=== PATIENT | female | born 1995 | race Caucasian/White ===

== ENCOUNTER → 2020-07-02 | Outpatient (CLI) | payer OTHER ==
--- NOTE | 2020-08-14 09:50 | REP ---
OBSTETRIC ULTRASOUND FOR ANATOMY DATE: 07/02/2020. NOTE: Delay in reporting results from hospital computer system malfunction as a result of a malware attack. FINDINGS: There is a single intrauterine gestation. position is variable. The placenta is posterior, grade 1. There is no previa or abruptio. On one of the images, the inferior tip of the placenta extends into the lower uterine segment and is 2.2 cm above the internal cervical os. The heart rate is 167 beats per minute. Subjectively, the amniotic fluid volume is normal. Cervix measures 3.4 cm in length. The technologist describes a 2.5 cm fibroid in the anterior-inferior myometrium; however, I do not see any images of this fibroid in the images provided with the study. The composite gestational age by the ultrasound today is 21 weeks, 4 days. EDC is 11/08/2020. The estimated weight is 453 grams. This is the 28th percentile. The following anatomic structures are identified and are unremarkable: Cisterna magna, cavum septum pellucidum, thalami, spine, stomach, bladder, three-vessel cord, cord insertion, upper and lower extremities, face, and upper lip. The four-chamber view of the heart and the cardiac right ventricular outflow tracts are not optimally demonstrated. A followup study dedicated to these structures might be considered. Additionally, the renal pelves measured 5 mm AP diameter and are upper normal to mildly dilated. Attention to this finding on followup studies is recommended. In addition, attention to the location of the placental inferior margin is recommended on follow up studies. MTDD
== END ==
LOC: M WHC 16:38
PROVIDERS: ATTEND Advanced Practice Midwife
DX: Z34.82 Encounter for supervision of other normal pregnancy, second trimester (principal); Z3A.21 21 weeks gestation of pregnancy

== ENCOUNTER → 2020-07-21 | Outpatient (CLI) | payer OTHER ==
[2020-07-21 19:30] LABS: HEMATOCRIT 35.6 % (36.0-47.0); HEMOGLOBIN 11.8 g/dl (12.0-15.5); MEAN CORPUSCULAR HEMOGLOBIN 30.1 pg (27.0-33.0); MEAN CORPUSCULAR HGB CONC 33.1 g/dl (32.0-36.5); MEAN CORPUSCULAR VOLUME 90.8 fl (80.0-96.0); PLATELET COUNT, AUTOMATED 264 10^3/uL (150-450); RED BLOOD COUNT 3.92 10^6/uL (4.00-5.40); WHITE BLOOD COUNT 9.5 10^3/uL (4.0-10.0)
== END ==
LOC: M PLALAB 14:50
PROVIDERS: ATTEND Advanced Practice Midwife
DX: Z34.02 Encounter for supervision of normal first pregnancy, second trimester (principal); Z3A.00 Weeks of gestation of pregnancy not specified

== ENCOUNTER → 2020-08-06 | Outpatient (CLI) | payer OTHER ==
--- NOTE | 2020-08-21 08:38 | REP ---
LIMITED OBSTETRICAL ULTRASOUND TECHNIQUE: Transabdominal obstetric ultrasound with color Doppler evaluation. COMPARISON: 07/02/2020 FINDINGS: Ultrasound examination demonstrates a single live intrauterine in breech presentation. motion was identified by the technologist. Placenta noted posteriorly and grade 0 without evidence for placenta previa or abruption. Amniotic fluid volume is normal. Cervix measures 3.3 cm in length and appears closed. Gestational age by last menstrual period (LMP) 27 weeks 1 day with estimated date of delivery 11/04/2020. Gestational age by current measurements 26 weeks 5 days with estimated date of delivery 11/07/2020. heart rate 152 beats per minute. Amniotic fluid index (ISAC) 12.3 cm. Estimated weight 985 grams (27th percentile). Limited anatomical assessment demonstrates normal four chamber heart and cardiac ventricular outflow tracts. IMPRESSION: Single live intrauterine in breech presentation demonstrating appropriate estimated weight. In conjunction with prior examination, anatomical assessment is complete and normal. No gross abnormalities are identified. MTDD
== END ==
LOC: M WHC 12:52
PROVIDERS: ATTEND Advanced Practice Midwife
DX: O32.1XX0 Maternal care for breech presentation, not applicable or unspecified (principal); Z36.89 Encounter for other specified antenatal screening; Z3A.26 26 weeks gestation of pregnancy

== ENCOUNTER → 2020-08-27 | Outpatient (CLI) | payer OTHER ==
--- NOTE | 2020-09-01 15:09 | REP ---
LEFT AXILLARY ULTRASOUND HISTORY: Lump left axillary tail. TECHNIQUE: Real-time sonographic evaluation of the left axilla is performed at the site of the reported palpable abnormality. Scanning of the right axilla was performed for comparison. FINDINGS: There is prominent ill-defined soft tissue seen in the left axillary region at the site of the palpable lump. There is no discrete cystic or solid mass. The soft tissue is thicker than right. AP thickness on the left is about 1.3 cm and right 0.8 cm. IMPRESSION: Asymmetric soft tissue is ill-defined in the left axilla at the site of the reported palpable lump. This may represent some degree of fibroglandular proliferation in this patient who is reportedly . There is no discrete cystic or solid mass. Clinical correlation and follow-up recommended. MARILYN
== END ==
LOC: M WHC 10:59
PROVIDERS: ATTEND Advanced Practice Midwife
DX: N63.32 Unspecified lump in axillary tail of the left breast (principal)

== ENCOUNTER → 2020-09-09 | Outpatient (REF) | payer OTHER ==
[2020-09-09 15:48] LABS: HIV 1&2 SCREEN CENTAUR NEGATIVE (NEGATIVE)
== END ==
LOC: M PLALAB 09:32
PROVIDERS: ATTEND Advanced Practice Midwife
DX: Z34.03 Encounter for supervision of normal first pregnancy, third trimester (principal)
CPT/HCPCS: 36415; 87340; 87389; 87490; 87590; G0463

== ENCOUNTER → 2020-10-07 | Outpatient (REF) | payer OTHER | LOC: M SFHCWAGY 16:49 | PROVIDERS: ATTEND Advanced Practice Midwife | DX: Z34.03 Encounter for supervision of normal first pregnancy, third trimester (principal); Z3A.00 Weeks of gestation of pregnancy not specified | CPT/HCPCS: 87081; 87186; G0463 ==

== ENCOUNTER 2020-11-07 04:08 | Inpatient (IN) | payer OTHER ==
[2020-11-07] VITALS (18 sets, daily range): BP systolic 103–132; BP diastolic 58–77
[~2020-11-07] VITALS: Ht 165.1 cm; Wt 86.4 kg
[2020-11-07] MEDS ORDERED: PRENTAB9 PO (04:48)
[2020-11-07] MEDS ORDERED: LR 1,000 ML IV SCH ×2 (06:35→11:19)
[2020-11-07] MEDS ORDERED: PENICILLIN G POTASSIUM IV 5 MU in D5W MINI-BAG PLUS 100 ML IV STA (06:35)
[2020-11-07] MEDS ORDERED: LACTATED RINGER'S 1000 ML IV STA (06:35)
[2020-11-07 07:21] LABS: HEMATOCRIT 37.2 % (36.0-47.0); HEMOGLOBIN 11.9 g/dl (12.0-15.5); MEAN CORPUSCULAR VOLUME 84.4 fl (80.0-96.0); PLATELET COUNT, AUTOMATED 207 10^3/uL (150-450); RED BLOOD COUNT 4.41 10^6/uL (4.00-5.40); WHITE BLOOD COUNT 10.7 10^3/uL (4.0-10.0)
--- NOTE | 2020-11-07 08:02 | HPEPDOC ---
Obstetrical History & Physical General Date of Admission Nov 07, 2020 at 06:42 History of Present Illness Jesus is a 24yo with SIUP at 40w3d by lmp who presents for regular, painful ctx that have increased in frequency and intensity over the prior couple of hours. She stated they were 3min apart and breathing through them. Good movement. Thinks she "lost her mucous plug". No LOF. Some scant spotting. No f/c/n/v/CP/SOB. 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 history Past Medical History Medical History benign Surgical History: [place] teeth Family History Significant Family History: No pertinent family hx Social History Marital Status: Family situation: Spouse/partner home Psychosocial History: No pertinent psych hx * Smoker: non-smoker Alcohol: Denies Drugs: denies Imunizations Tdap status: declined Allergies Coded Allergies: shellfish derived (Verified Allergy, Mild, RASH, 11/07/20) Sulfa (Sulfonamide Antibiotics) (Verified Allergy, Unknown, 11/07/20) Medications Scheduled No.137/Iron/Folic Acd ( Vitamin Tablet) 1 Each Tablet, 1 TAB PO DAILY Physical Examination Physical Examination GENERAL: Alert and oriented times three. ABDOMEN: Gravid and non-tender to touch. FETUS: Is vertex (VTX) by sterile vaginal examination (SVE) EXTREMITIES: No edema BLE Vital Signs/I&O Vital Signs Date Time Temp Pulse Resp B/P (MAP) Pulse Ox O2 Delivery O2 Flow Rate FiO2 11/07/20 04:29 97.9 98 18 132/75 (94) Laboratory Data [facility] Laboratory Tests 2 11/07/20 06:46: Serology Scanned Report Hepatitis B Testing 11/07/20 07:00: CBC/BMP Pertinent Laboratoy Data Blood Type: AB+ RBC Antibody Screen: Negative HIV: Negative Hepatitis B: Negative Rapid Plasma Reagin: Nonreactive (VDRL 04/18/20) Rubella: Immune Chlamydia/Gonorrhea: Negative Group B Streptococcus: Positive Glucose Tolerance Test: 92 Anatomy Ultrasound Ultrasound Date: Aug 06, 2020 Placenta Location: Posterior Normal Anatomy: Yes Placenta Previa: No Steroid Therapy Steroid Therapy: No Vaginal Examination Dilation: 6 cm Effacement: 90% Station: -2 Cervical Consistency: Soft Cervical Position: Middle Presentation: Cephalic presentation Assessment Heart Rate (FHR): 130 Variability: Moderate Accelerations: Positive Decelerations: None Tocometer Contractions: Yes Frequency: irregular Assessment/Plan Assessment Jesus is a 24yo with SIUP at 40w3d by lmp in active labor- she was checked by VU Funez and was 3/50/-3 then on re-check by me 2hr later is 6/90/-2. Ctx currently are irregular. Cephalic by SCE. Vitals and exam wnl. Cat I FHRT. Second trimester transfer-in from [place], GBS positive, Covid positive 27 October Plan Admit and orient. Car Refinisher and consent. Diet: clear liquids Group B Streptococcus (GBS) positive: PCN IV per protocol Labs and intravenous (IV) per unit protocol. Lactated Ringers (LR): Bolus 800 mL, then at 125 mL/hr. Anticipate normal spontaneous delivery () Candidate for epidural if desired Ellie Severino MD Nov 07, 2020 08:01
[2020-11-07] MEDS ORDERED: miSOPROStol 50 MCG 1/2 TAB (S0191) PO SCH (09:00)
--- NOTE | 2020-11-07 09:04 | IPNPDOC ---
Text Note Date of Service The patient was seen on 11/07/20. NOTE Inpatient Jesus reports contractions are spacing out and that has been seen on EFM also. Risks, benefits, and alternatives to AROM and Pitocin were discussed. She is opting for position changes and free movement for the next 2hrs and reassess and discuss intervention at that time. She wants as intervention free labor and as possible. She is has the CUB, birthing ball, and partner/cigar head perforator at her disposal for less intervention . Category 1 FHR, 140bpm baseline, UC irregular on toco Regular Diet for breakfast, per her request VS,Fishbone, I+O VS, Fishbone, I+O Laboratory Tests 11/07/20 07:00 Vital Signs Date Time Temp Pulse Resp B/P (MAP) Pulse Ox O2 Delivery O2 Flow Rate FiO2 11/07/20 04:29 97.9 98 18 132/75 (94) Harriett Schulz CNM Nov 07, 2020 09:04
--- NOTE | 2020-11-07 11:26 | IPNPDOC ---
Text Note Date of Service The patient was seen on 11/07/20. NOTE Inpatient Jesus has been changing positions frequently and contractions have not increased over the last few hours. She reports less intense and less frequent contractions. SVE /-1, soft, midposition by INNA Sam. Discussed options for AROM and Pitocin to be started to augment labor. After a discussion with her partner and rn acls, she opted to have Pitocin started at this time. Category 1 FHT, 140bpm baseline, UC irregular by [place] Plan to start Pitocin Anticipate VS,Fishbone, I+O VS, Fishbone, I+O Laboratory Tests 11/07/20 07:00 Vital Signs Date Time Temp Pulse Resp B/P (MAP) Pulse Ox O2 Delivery O2 Flow Rate FiO2 11/07/20 08:49 98.4 75 16 104/60 (75) Harriett Schulz CNM Nov 07, 2020 11:26
[2020-11-07] MEDS ORDERED: OXYTOCIN DRIP 30 UNITS in IV 1 EA IV SCH (11:30)
[2020-11-07] MEDS: PENICILLIN G POTASSIUM IV 2.5 MU in IV 1 EA IV SCH ×2 (11:36→15:13)
--- NOTE | 2020-11-07 15:22 | IPNPDOC ---
Text Note Date of Service The patient was seen on 11/07/20. NOTE Inpatient Jesus is moaning through contractions with partner and mortgage loan underwriter support she has been changing positions frequently and feeling more pressure with contractions. Small amount of bloody show seen on bed pads. Awaiting strong urge to push. Declined SVE at this time. Category 1 FHT, 150bpm baseline. UC 3-4 minutes apart Pitocin at 8mu/min, continue with Pitocin. Anticipate VS,Fishbone, I+O VS, Fishbone, I+O Laboratory Tests 11/07/20 07:00 Vital Signs Date Time Temp Pulse Resp B/P (MAP) Pulse Ox O2 Delivery O2 Flow Rate FiO2 11/07/20 13:40 93 18 111/70 (84) 11/07/20 08:49 98.4 Harriett Schulz CNM Nov 07, 2020 15:22
[2020-11-07 17:40] LABS: CORD GAS ABE V -6.4; CORD GAS HCO3 V 18.6 MEQ/L; CORD GAS O2 SAT V 92.3 %; CORD GAS PCO2 V 35.8 mmHg; CORD GAS PH V 7.333 UNITS; CORD GAS PO2 V 52.5 mmHg; CORD GAS SBC V 19.2 MEQ/L; CORD GAS TCO2 V 19.7 MEQ/L
[2020-11-07] MEDS ORDERED: RHOGAM 300 MCG (1500 IU) INJ (J2790) IM SCH (18:15)
[2020-11-07] MEDS ORDERED: OXYTOCIN INJ 10 UNITS/ML VIAL (J2590) IM ONE (18:15)
[2020-11-07] MEDS ORDERED: MEASLES,MUMPS,RUBELLA VACCINE INJ (MMR-II) (90707) SC SCH (18:15)
[2020-11-07] MEDS ORDERED: ANUSOL HC CREAM 30GM TOP PRN (18:15)
[2020-11-07] MEDS ORDERED: LIDOCAINE 1% MDV 20ML VIAL INFIL ONE (18:15)
[2020-11-07] MEDS ORDERED: DOCUSATE SODIUM 100MG CAPSULE PO PRN (18:15)
[2020-11-07] MEDS ORDERED: BENZOCAINE 20% HEMORRHOIDAL OINTMENT 28GM TUBE TOP PRN (18:15)
[2020-11-07] MEDS ORDERED: METHYLERGONOVINE MALEATE 0.2 MG TAB PO PRN (18:15)
[2020-11-07] MEDS ORDERED: MOM 30ML SUSPENSION UDC PO PRN (18:15)
[2020-11-07] MEDS ORDERED: IBUPROFEN 600MG TAB PO PRN (18:15)
--- NOTE | 2020-11-07 18:17 | DNPDOC ---
[facility] Delivery Note Delivery Note DATE OF DELIVERY: 11/07/20 @ 1725 PREDELIVERY DIAGNOSIS: 40-3/7 weeks' gestation and labor. POST DELIVERY DIAGNOSIS: Delivered. PROCEDURE: Spontaneous vaginal delivery. PROVIDER: LANDON Oliver and INNA Sam ANESTHESIA: Local, 1% Lidocaine. ESTIMATED BLOOD LOSS: 300 mL. FINDINGS: 8 pound 6 ounce, 3790g, Male , Score 7/9, shoulder dystocia alleviated with Brodie and Suprapubic pressure. DELIVERY SUMMARY: Patient is a 24-year-old 1 now para 1-0-0-1 who was admitted to labor and delivery for spontaneous labor. She progressed on her own to 6cm and then labor stalled. Pitocin was started and she began pushing with a strong urge to push at 1627 with anterior lip that resolved with pushing, full dilation was at 1643. SROM was noted at 1604, clear fluid. head was delivered in the KRUNAL position with restitution to ROP. Anterior left shoulder dystocia over 60 seconds relieved with flattening HOB, Brodie, suprapubic pressure, and strong maternal pushing efforts. fully delivered at 1725 and placed on maternal abdomen, cryng and vigorous with stimulation. Venous blood gas collected, pH 7.333, base excess -6.4. Placenta delivered intact with maternal pushing efforts at 1742, House mechanism. Vagina, perineum, cervix examined and a right labial laceration was repaired with 3-0 Vicryl Rapide. Sponges and sharps counted and correct. Kendell are pleased with and planning to name him "Tj" and breastfeed him. Harriett Schulz CNM Nov 07, 2020 18:17
[2020-11-07] MEDS: IBUPROFEN 800 MG TAB PO PRN (18:40)
[2020-11-07] MEDS: ACETAMINOPHEN TAB 650MG DOSE (2X325MG) PO PRN (18:41)
[2020-11-07] MEDS ORDERED: miSOPROStol 200 MCG TAB (S0191) PR ONE (18:45)
[2020-11-07] MEDS: METHYLERGONOVINE MALEATE 0.2 MG TAB PO SCH (19:33)
[2020-11-08] MEDS: METHYLERGONOVINE MALEATE 0.2 MG TAB PO SCH ×3 (00:52→12:56)
[2020-11-08] MEDS: ACETAMINOPHEN TAB 650MG DOSE (2X325MG) PO PRN (01:02)
[2020-11-08 02:00] VITALS: BP 125/69
[2020-11-08 05:42] VITALS: BP 114/59
--- NOTE | 2020-11-08 08:01 | IPNPDOC ---
Text Note Date of Service The patient was seen on 11/08/20. NOTE PP #1 Feels well. Adequate pain management. . Voiding VSS, afebrile, normotensive Breasts soft, nipples intact Fundus firm, NT, down 1 FB Lochia rubra light without odor Perineum intact PP #1 Routine care. Anticipate D/C in am VS,Fishbone, I+O VS, Fishbone, I+O Vital Signs Date Time Temp Pulse Resp B/P (MAP) Pulse Ox O2 Delivery O2 Flow Rate FiO2 11/08/20 05:42 98.7 96 17 114/59 (77) 98 Room Air I&O- Last 24 Hours up to 6 AM 11/08/20 06:00 Intake Total 3198.8 ml Output Total 1750 ml Balance 1448.8 ml Harriett Schulz CNM Nov 08, 2020 08:01
[2020-11-08] MEDS: PRENATAL VITAMINS CHEWABLE TABLET PO SCH (08:02)
[2020-11-08] MEDS: ACETAMINOPHEN 500 MG TAB PO PRN ×3 (08:02→23:24)
[2020-11-08 10:00] VITALS: BP 114/60
[2020-11-08] MEDS: IBUPROFEN 800 MG TAB PO PRN ×2 (12:56→20:57)
[2020-11-08 18:00] VITALS: BP 117/60
[2020-11-08] MEDS ORDERED: METHYLERGONOVINE MALEATE 0.2 MG TAB PO PRN (18:46)
[2020-11-09] MEDS: IBUPROFEN 800 MG TAB PO PRN (05:04)
[2020-11-09 05:20] VITALS: BP 109/56
[2020-11-09] MEDS: PRENATAL VITAMINS CHEWABLE TABLET PO SCH (08:26)
== END 2020-11-09 12:30 | disposition home or self-care (01) | DRG 807 ==
LOC: M LDO 04:08 → M LDI 06:42 → M OBS 20:23
PROVIDERS: ADMIT Obstetrics & Gynecology; ATTEND Advanced Practice Midwife
PROC: 10E0XZZ Delivery of Products of Conception, External Approach (ICD-10-PCS; principal; 2020-11-07)
PROC: 0HQ9XZZ Repair Perineum Skin, External Approach (ICD-10-PCS; 2020-11-07)
DX: O48.0 Post-term pregnancy (principal); Z37.0 Single live birth; Z3A.40 40 weeks gestation of pregnancy; O99.824 Streptococcus B carrier state complicating childbirth; O66.0 Obstructed labor due to shoulder dystocia; O70.0 First degree perineal laceration during delivery

== ENCOUNTER → 2022-08-30 | Outpatient (CLI) | payer OTHER ==
[~2022-08-30] MED LIST: PRENTAB9 PO
[2022-08-30 17:01] LABS: HEMATOCRIT 34.1 % (36.0-47.0); HEMOGLOBIN 11.6 g/dl (12.0-15.5); MEAN CORPUSCULAR HEMOGLOBIN 29.3 pg (27.0-33.0); MEAN CORPUSCULAR VOLUME 86.1 fl (80.0-96.0); PLATELET COUNT, AUTOMATED 256 10^3/uL (150-450); RED BLOOD COUNT 3.96 10^6/uL (4.00-5.40); WHITE BLOOD COUNT 8.4 10^3/uL (4.0-10.0)
[2022-08-30 18:25] LABS: HEPATITIS C VIRUS ABY INDEX < 0.0 INDEX (<0.8); HIV 1&2 SCREEN CENTAUR NEGATIVE (NEGATIVE)
[2022-08-30 18:48] LABS: GC DNA AMPLIFICATION NEGATIVE (NEGATIVE)
== END ==
LOC: M PLALAB 15:09
PROVIDERS: ATTEND Obstetrics & Gynecology
DX: Z34.82 Encounter for supervision of other normal pregnancy, second trimester (principal); Z3A.17 17 weeks gestation of pregnancy
CPT/HCPCS: 36415; 85027; 86762; 86780; 86803; 86850; 86900; 86901; 87086; 87340; 87389; 87810; 87850; G0463

== ENCOUNTER → 2022-09-15 | Outpatient (CLI) | payer OTHER | LOC: M WHC 09:02 | PROVIDERS: ATTEND Obstetrics & Gynecology | DX: Z34.92 Encounter for supervision of normal pregnancy, unspecified, second trimester (principal); Z3A.19 19 weeks gestation of pregnancy ==

== ENCOUNTER → 2022-11-23 | Outpatient (CLI) | payer OTHER | LOC: M WHC 14:30 | PROVIDERS: ATTEND Obstetrics & Gynecology | DX: O32.2XX0 Maternal care for transverse and oblique lie, not applicable or unspecified (principal); Z3A.29 29 weeks gestation of pregnancy ==

== ENCOUNTER → 2022-11-23 | Outpatient (CLI) | payer OTHER ==
[2022-11-23 18:17] LABS: HEMATOCRIT 32.2 % (36.0-47.0); HEMOGLOBIN 10.6 g/dl (12.0-15.5); MEAN CORPUSCULAR HGB CONC 32.9 g/dl (32.0-36.5); PLATELET COUNT, AUTOMATED 230 10^3/uL (150-450); RED BLOOD COUNT 3.66 10^6/uL (4.00-5.40); WHITE BLOOD COUNT 11.1 10^3/uL (4.0-10.0)
[2022-11-23 18:37] LABS: GC DNA AMPLIFICATION NEGATIVE (NEGATIVE)
== END ==
LOC: M PLALAB 14:59
PROVIDERS: ATTEND Obstetrics & Gynecology
DX: Z34.82 Encounter for supervision of other normal pregnancy, second trimester (principal)

== ENCOUNTER → 2023-01-11 | Outpatient (REF) | payer OTHER | LOC: M PLALAB 09:25 | PROVIDERS: ATTEND Advanced Practice Midwife | DX: Z34.83 Encounter for supervision of other normal pregnancy, third trimester (principal) ==

== ENCOUNTER → 2023-02-02 | Outpatient (CLI) | payer OTHER | LOC: M LABSMTC 11:12 | PROVIDERS: ATTEND Anesthesiology | DX: Z01.812 Encounter for preprocedural laboratory examination (principal); Z20.822 Contact with and (suspected) exposure to COVID-19 ==

== ENCOUNTER → 2024-03-28 | Outpatient (CLI) | payer OTHER ==
[~2024-03-28] MED LIST changes: +COLA100C5 PO; +IBUP80TA PO; +PERCOCET PO
[2024-03-28 16:15] LABS: BASO # 0.1 10^3/uL (0.0-0.2); BASO % 0.9 % (0.0-1.0); EOS # 0.2 10^3/uL (0.0-0.5); EOS % 2.8 % (0.0-3.0); HEMATOCRIT 36.2 % (36.0-47.0); LYMPH # 2.5 10^3/uL (1.5-5.0); LYMPH % 28.8 % (24.0-44.0); MEAN CORPUSCULAR HEMOGLOBIN 28.2 pg (27.0-33.0); MEAN CORPUSCULAR HGB CONC 33.1 g/dl (32.0-36.5); MONO # 0.7 10^3/uL (0.0-0.8); MONO % 8.2 % (2.0-8.0); NEUTROPHILS % 59.1 % (36.0-66.0); PLATELET COUNT, AUTOMATED 311 10^3/uL (150-450); RED BLOOD COUNT 4.26 10^6/uL (4.00-5.40); WHITE BLOOD COUNT 8.5 10^3/uL (4.0-10.0)
== END ==
LOC: M PLALAB 14:13
PROVIDERS: ATTEND Obstetrics & Gynecology
DX: Z12.4 Encounter for screening for malignant neoplasm of cervix (principal); N93.9 Abnormal uterine and vaginal bleeding, unspecified; R87.610 Atypical squamous cells of undetermined significance on cytologic smear of cervix (ASC-US)

== ENCOUNTER → 2024-09-10 | Outpatient (REF) | payer OTHER | LOC: M LAB REF 17:17 | PROVIDERS: ATTEND Family Medicine | DX: J03.90 Acute tonsillitis, unspecified (principal) ==

== ENCOUNTER → 2025-03-07 | Outpatient (REF) | payer OTHER | LOC: M LAB REF 16:53 | PROVIDERS: ATTEND Physician Assistant | DX: R19.7 Diarrhea, unspecified (principal) ==